=== PATIENT | male | born 1980 | race Caucasian/White ===

== ENCOUNTER 2019-10-16 13:03 | Emergency (ER) | payer BC ==
[~2019-10-16] VITALS: Ht 177.8 cm; Wt 92.0 kg
--- NOTE | 2019-10-16 13:15 | NUR ---
LATE ENTRY: PT AMBULATED BACK TO ROOM WITH A SMOOTH AND STEADY GAIT, PT CHANGED INTO GOWN, RESTING ON GURNEY, CALL LIGHT ON LAP, [employer], P/W/D. MEET ROSS AT FOR EVAL AND TO DISCUSS POC.
[2019-10-16] MEDS ORDERED: HYDROmorphone 1 MG/ML, 1ML INJ IM ONE (13:30)
[2019-10-16] MEDS ORDERED: HYDROmorphone 1 MG/ML, 1ML INJ ONE (13:35)
--- NOTE | 2019-10-16 13:50 | NUR ---
DILAUDID ORDER CHANGED TO 0.5 MG. WASTED WITH JALEN ALVA.
--- NOTE | 2019-10-16 13:54 | NUR ---
DILAUDID ORDER CHANGED FROM 1MG TO 0.5MG WASTED 0.5MG W/ MONICA RN IN ROOM.
[2019-10-16] MEDS ORDERED: HYDROmorphone 1 MG/ML, 1ML INJ IV ONE (14:00)
--- NOTE | 2019-10-16 14:12 | NUR ---
PT RESTING ON [employer] W/ CALL LIGHT IN REACH. RESP EVEN AND UNLABORED. GÓMEZ.
--- NOTE | 2019-10-16 14:39 | NUR ---
PT BACK FROM CT, RESTING IN [facility], AT BS, [id number], CALL LIGHT ON LAP, DENIES ADDITIONAL NEEDS AT THIS TIME. P/W/D. WAITING ON CT RESULTS. PT REPORTS PAIN IS DECREASED. WCTM.
--- NOTE | 2019-10-16 15:27 | NUR ---
Dr. Owens spoke with Dr. Ludwig regarding patients pneumothorax and would like patient transferred to [facility] ED. Dr. Ludwig spoke with [facility] ER Dr. Garcia who accepted patient as an ED->ED transfer. Spoke with [facility] dispatch [facility] who has arranged patients transport to [facility] and states ETA is [phone]. Insurance info faxed to [facility] and confirmed by Bell. No need for MTM call as patient has [employer].
--- NOTE | 2019-10-16 15:34 | NUR ---
Imaging pushed over to [facility] by our Radiology department.
[2019-10-16 15:40] VITALS: BP 106/65
== END 2019-10-16 15:51 | disposition short-term general hospital (02) ==
LOC: ED 14:22
DX: S22.41XA Multiple fractures of ribs, right side, initial encounter for closed fracture (principal); J93.9 Pneumothorax, unspecified; R06.03 Acute respiratory distress; M25.511 Pain in right shoulder; V27.4XXA Motorcycle driver injured in collision with fixed or stationary object in traffic accident, initial encounter; Y93.89 Activity, other specified; Y92.89 Other specified places as the place of occurrence of the external cause; Y99.8 Other external cause status
CPT/HCPCS: 71045; 71250; 72170; 96374; 99285; J1170